=== PATIENT | male | born 1955 | race African-American/Black ===

== ENCOUNTER 2021-12-07 12:25 | Emergency (ER) | payer OTHER ==
[~2021-12-07] VITALS: Ht 177.8 cm; Wt 98.0 kg
[2021-12-07] MEDS ORDERED: SODIUM CHLORIDE 0.9% 1,000 ML IV ONE (13:15)
[2021-12-07 13:35] LABS: BASOPHILS % 0.8 % (0.0-2.0); EOSINOPHILS % 2.8 % (0.0-5.0); HEMATOCRIT. 40.9 % (42.0-52.0); HEMOGLOBIN. 13.8 g/dL (14.0-18.0); LYMPHOCYTES % 37.9 % (20.0-50.0); MEAN CORPUSCULAR HEMOGLOBIN 31.2 pg (28.0-32.0); MEAN CORPUSCULAR VOLUME 92.6 fL (80.0-94.0); MEAN PLATELET VOLUME 7.7 fl (7.4-10.4); MONOCYTES % 12.2 % (2.0-8.0); NEUTROPHILS % 46.3 % (40.0-76.0); PLATELET 244 x1000/uL (130-400); RED BLOOD CELL COUNT 4.42 mill/uL (4.7-6.1); RED CELL DISTRIBUTION WIDTH 16.6 % (11.6-14.6)
[2021-12-07 13:47] LABS: CHLORIDE 107 mEq/L (98-107)
[2021-12-07 13:52] LABS: ETHANOL BLOOD 125 mg/dL
[2021-12-07 15:39] LABS: CLARITY URINE CLEAR (CLEAR); COLOR URINE YELLOW (YELLOW); KETONES URINE NEGATIVE (NEGATIVE); LEUKOCYTE ESTERASE URINE NEGATIVE (NEGATIVE); NITRITE URINE NEGATIVE (NEGATIVE); OCCULT BLOOD URINE NEGATIVE (NEGATIVE); PH URINE 5.5 (4.5-8.0); PROTEIN URINE NEGATIVE (NEGATIVE); SPECIFIC GRAVITY URINE 1.009 (1.005-1.030)
[2021-12-07 16:07] LABS: *AMPHETAMINES SCREEN URINE NEGATIVE (NEGATIVE); *BARBITURATES SCREEN URINE NEGATIVE (NEGATIVE); *BENZODIAZEPINES SCREEN URINE NEGATIVE (NEGATIVE); *COCAINE SCREEN URINE PRESUMTIVE POSITIVE (NEGATIVE); CANNABINOID URINE SCREEN PRESUMTIVE POSITIVE (NEGATIVE); METHADONE URINE SCREEN NEGATIVE (NEGATIVE); OPIATES URINE SCREEN NEGATIVE (NEGATIVE); PHENCYCLIDINE URINE SCREEN NEGATIVE (NEGATIVE)
[2021-12-07] MEDS ORDERED: IBUPROFEN 600MG TABLET PO ONE (23:00)
[2021-12-07] MEDS ORDERED: LORAZEPAM 1MG TABLET PO ONE (23:00)
[2021-12-08] MEDS ORDERED: CHLORDIAZEPOXIDE 25MG CAPSULE PO PRN (09:30)
[2021-12-08] MEDS ORDERED: AMLODIPINE 10MG TABLET PO SCH (10:30)
[2021-12-08] MEDS: CITALOPRAM HYDROBROMIDE 10MG TABLET PO SCH (10:43)
[2021-12-08] MEDS: TAMSULOSIN HCL 0.4MG SR CAPSULE PO SCH (10:47)
[2021-12-08] MEDS ORDERED: GABAPENTIN 300MG CAPSULE PO SCH (14:00)
[2021-12-09] MEDS ORDERED: AMLODIPINE 10MG TABLET PO SCH (09:00)
[2021-12-09] MEDS: TAMSULOSIN HCL 0.4MG SR CAPSULE PO SCH (09:50)
[2021-12-09] MEDS: CITALOPRAM HYDROBROMIDE 10MG TABLET PO SCH (09:50)
[2021-12-09] MEDS ORDERED: IBUPROFEN 400MG TABLET PO ONE (11:45)
[2021-12-09 19:07] VITALS: BP 140/90
== END 2021-12-09 19:08 ==
LOC: ER 12:25
DX: R45.851 Suicidal ideations (principal); F32.9 Major depressive disorder, single episode, unspecified; I49.8 Other specified cardiac arrhythmias; F19.10 Other psychoactive substance abuse, uncomplicated; Z20.822 Contact with and (suspected) exposure to COVID-19
CPT/HCPCS: 36415; 80053; 80305; 80307; 80320; 80329; 81003; 85025; 93005; 96360; 99285; C9803; J7030; U0003; U0005; G0480